=== PATIENT | female | born 1985 | race Caucasian/White ===

== ENCOUNTER → 2018-04-01 | Outpatient (CLI) | payer OTHER ==
[~2018-04-01] VITALS: Ht 175.3 cm; Wt 70.0 kg
[~2018-04-01] MED LIST: CIMZIA400 MG/2 M PO; PREDNISONE1 MG PO; PRENATAL TABLE1 EAC3 PO; TYLENOL ARTHRI650 MG PO
[2018-04-01 16:20] VITALS: BP 122/68
== END | disposition home or self-care (01) ==
LOC: IVINF 16:00
DX: Z34.93 Encounter for supervision of normal pregnancy, unspecified, third trimester (principal); Z29.13 Encounter for prophylactic Rho(D) immune globulin; Z3A.28 28 weeks gestation of pregnancy
CPT/HCPCS: 96372; J2790